=== PATIENT | male | born 1950 | race Two or more races ===

== ENCOUNTER 2024-01-26 08:02 | Emergency (ER) | payer MEDICARE, MEDICAID, SELFPAY ==
[2024-01-26 08:06] VITALS: BMI 22.1
[2024-01-26 08:19] VITALS: BP 114/71; PULSE 64; RESP 18; TEMP 36.7; O2SAT 97; BMI 22.1
--- NOTE | 2024-01-26 08:19 | EKG_ITS ---
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
--- NOTE | 2024-01-26 08:22 | PD.EDRME ---
Rapid Medical Screening Exam RME Arrival date/time: 01/26/24 08:02 Chief Complaint: General Adult/Misc Complain Vital signs: Vital Signs Temperature 98.0 F 01/26/24 08:19 Pulse Rate 64 01/26/24 08:19 Respiratory Rate 18 01/26/24 08:19 Blood Pressure 114/71 01/26/24 08:19 Pulse Oximetry (%) 97 01/26/24 08:19 Oxygen Delivery Method Room Air 01/26/24 08:19 RME Narrative: chest pain x2 days, intermittent BUE numbness/tingling x2 weeks
--- NOTE | 2024-01-26 08:24 | XR_ITS ---
Examination: PA chest single view TECHNIQUE: Upright PA chest single view Exam date and time: January 26, 2024 0847 hours INDICATIONS: Chest pain beginning 2 days ago. FINDINGS: Normal heart size Transvenous dual-chamber bipolar cardiac leads satisfactory position No pneumonia or pulmonary edema IMPRESSION: No active disease
[2024-01-26 08:44] LABS: Basophils % (Auto) 0 % (0-2.5); Eosinophils # (Auto) 0.4 Thou/mm3 (0.0-0.5); Eosinophils % (Auto) 5 % (0-10); Hematocrit 42.9 % (41.0-53.0); Hemoglobin 14.1 g/dL (13.5-16.0); Immature Granulocytes % (Auto) 0 % (0-0); Immature Granulocytes Auto 0.03 Thou/mm3 (0.00-0.00); Lymphocytes # (Auto) 2.1 Thou/mm3 (1.0-4.8); Lymphocytes % (Auto) 28 % (10-50); Mean Corpuscular HGB Conc 32.9 g/dl (31.0-37.0); Mean Corpuscular Hemoglobin 30.2 pg (25.0-35.0); Mean Corpuscular Volume 92 fL (80-100); Monocytes # (Auto) 0.6 Thou/mm3 (0.0-0.8); Monocytes % (Auto) 9 % (0-12); Neutrophils # (Auto) 4.3 Thou/mm3 (1.8-7.7); Neutrophils % (Auto) 58 % (37-80); Nucleated Red Blood Cell % 0 /100 WBC (0); Platelet Count 249 Thou/mm3 (140-440); RDW Standard Deviation 45.9 fL (35.1-43.9); Red Blood Count 4.67 Miln/mm3 (4.50-5.90); White Blood Count 7.5 Thou/mm3 (3.8-10.6)
[2024-01-26 09:02] LABS: B-Type Natriuretic Peptide < 20 pg/mL (0-100)
[2024-01-26 09:05] LABS: Alanine Aminotransferase 79 U/L (10-49); Albumin, Serum 4.9 gm/dL (3.4-4.8); Albumin/Globulin Ratio 1.6 (1.2-2.2); Alkaline Phosphatase 93 U/L (46-116); Anion Gap 6 (7-16); Aspartate Amino Transferase 40 U/L (0-34); BUN/Creatinine Ratio 26 Ratio (12-20); Bilirubin,Total 0.9 mg/dL (0.3-1.2); Blood Urea Nitrogen 34 mg/dL (9-23); Calcium 9.5 mg/dL (8.3-10.6); Calcium (Corrected) 9.5 mg/dL (8.5-10.1); Carbon Dioxide 28.1 mMol/L (20.0-31.0); Chloride 103 mMol/L (98-107); Creatinine (Component) 1.3 mg/dL (0.6-1.3); Globulin 3.1 gm/dL (2.3-3.5); Glucose 127 mg/dL (74-106); Osmolality,Calculated 283 (275-295); Potassium 4.6 mMol/L (3.4-5.1); Sodium 137 mMol/L (136-145); Troponin I < 0.002 ng/mL (0.0-0.045); eGFR 57 See Note
[2024-01-26 09:26] VITALS: BP 129/62; PULSE 60; RESP 14; TEMP 36.8; O2SAT 98
--- NOTE | 2024-01-26 09:28 | PD.EDADULT ---
ED General RME/HPI General Chief complaint: General Adult/Misc Complain Stated complaint: numbness in both arms for 15 days Arrival date/time: 01/26/24 08:02 RME / HPI RME / HPI narrative: chest pain x2 days, intermittent BUE numbness/tingling x2 weeks This section includes all my notes and documentations, including HPI, PE, and ED course.? Kaleb Vivas MD HPI: 73 year old male with history of CAD s/p PCI 02/2023, s/p pacemaker placement, hypertension, hyperlipidemia presents to the ED for evaluation of intermittent chest pain x2 days and bilateral arm numbness beginning last night. Chest pain described as aching in sensation, located most to the center without radiation, rating as mild-moderate. Reportedly had experienced similar chest pain with arm numbness 02/2023 and underwent an angiogram with stent placement. Additionally reports 2 weeks ago had a 3-day inpatient admission in [place] where a technical internship evaluated him and was started on multiple new medications that include- Apsum, Trimetazidine, Escitalopram, Amlodipine, Farxiga, Acetylsalicylic acid, Metoclopramide, Quetiapine, Amiodarone. Denies fevers, chills, cough, shortness of breath, abdominal pain, n/v/d, or urinary symptoms. No other complaints. ROS: All negative except as documented in HPI. Physical Exam: General:? Alert and oriented.?? Eyes:? Conjunctivae and lids clear.?? ENT:? No nasal congestion.?? Neck:? Supple.?Midline cervical tenderness. Chest: No tenderness. Heart: RRR. Lungs:? No respiratory distress.??Good air movement with no rhonchi or wheezing or rales. Skin:? Warm and dry.?? Neuro:? Alert and oriented X 3.??Cranial nerves II through XII grossly normal. No peripheral motor deficits. I reviewed all diagnostic test results. My interpretation of the EKG is?sinus rhythm with nonspecific ST?T changes. My interpretation of the chest x-ray is no acute findings. My review of the head CT report is?no acute findings. My review of the cervical spine CT report is: C3-C4 stenosis. Blood tests unremarkable, including negative troponin X 2. At this point, diagnoses include?noncardiac chest pain and cervical radiculopathy. Recommended conservative treatment and more outpatient cardiac workup. Based on my best medical judgment, made decision no further evaluation or treatment indicated at this time.? Patient understands and agrees to the discharge instructions customized and printed, see below. Discharge Instructions from Dr. Vivas printed for you: 1. After extensive evaluation, there is no life-threatening condition. Such as stroke or heart attack. 2. Your neck pain with numbness in the arms is due to pinched nerves coming out of your neck into your arms. Apply ice/heat if helpful. Apply [id number] lidocaine patches as needed. Wear soft neck collar as needed. 3. See a private doctor on 01/29/2024 for recheck and further care. To make sure there is no serious underlying heart condition, ask to help you get more tests for your heart that cannot be done here in the ER. Such as Holter Monitor (cardiac monitoring at home from a day to even a month), heart stress test (on treadmill or with medication), echocardiogram (imaging of your heart structures), heart catherization (checking for blockages in your heart arteries), and a referral to see a Insurance Sales Representative. For your neck pinched nerves, ask for help with MRI imaging of the neck and referral to see specialists. Some elect to have surgery but you need MRI imaging to assess the severity. 4. Seek immediate medical care with worsening or with any concerns. Kaleb Vivas MD Related Data Home Medications ?Medication ?Instructions ?Recorded ?Confirmed lisinopril 20 mg tablet 20 mg PO QDAY 06/23/22 09/26/23 metoprolol succinate 25 mg 25 mg PO QDAY 06/23/22 09/26/23 tablet,extended release 24 hr aspirin 81 mg tablet,delayed 81 mg PO QDAY 09/26/23 09/26/23 release clopidogrel 75 mg tablet (Plavix) 75 mg PO QDAY 09/26/23 09/26/23 tamsulosin 0.4 mg capsule 0.4 mg PO QHS 09/26/23 09/26/23 Allergies Allergy/AdvReac Type Severity Reaction Status Date / Time No Known Allergies Allergy Verified 01/26/24 08:05 Review of Systems Review of Systems Systems Reviewed: All systems reviewed, normal except as documented Past Medical History Past Medical History CARDIAC: Positive Hypertension Surgical History SURGICAL: Positive Pacemaker Social History SMOKING STATUS: Never smoker ED Exam Narrative Physical exam: As noted in HPI Course Quality Measures none Orders Category Date Time Status EKG (ED ONLY) *Do not use* NOW Care 01/26/24 08:[address] cervical spine wo con Stat Exams 01/26/24 10:[address] head/brain wo con Stat Exams 01/26/24 10:01 Completed CXR [XR chest 1V] Stat Exams 01/26/24 08:24 Completed EKG (ED Only) Stat Exams 01/26/24 08:19 Draft BNP [B-Type Natriuretic Peptide] Stat Lab 01/26/24 08:29 Completed CBC Stat Lab 01/26/24 08:29 Completed CMP [Comprehensive Metabolic Panel] Stat Lab 01/26/24 08:29 Completed Magnesium Stat Lab 01/26/24 10:30 Completed Troponin I Stat Lab 01/26/24 08:29 Completed Troponin I Stat Lab 01/26/24 10:30 Completed Vital Signs Vital signs: Vital Signs Temperature 98.0 F 01/26/24 08:19 Pulse Rate 64 01/26/24 08:19 Respiratory Rate 18 01/26/24 08:19 Blood Pressure 114/71 01/26/24 08:19 Pulse Oximetry (%) 97 01/26/24 08:19 Oxygen Delivery Method Room Air 01/26/24 08:19 Pulse ox is 97% on room air which is adequate. [facility] Patient data External records reviewed:: [facility] previous records (I reviewed outpatient urology visit from 09/27/2023) Clinical information provided by:: patient Social determinants that could affect healthcare access:: none Patient has the following chronic illnesses:: CAD s/p PCI 02/2023, s/p pacemaker placement, hypertension, hyperlipidemia How is presenting disease/condition affected by chronic disease/condition?: exacerbated by Evaluation data The following diagnostics were reviewed and interpreted by me:: lab results, radiology exam(s) and EKG tracing(s) Lab and/or radiology exams considered but not ordered:: None Interpretation Summary: Noncardiac chest pain and cervical radiculopathy Medications Medications considered but not ordered:: None Medication administrations:: None Consultations Consultation(s) initiated? (list below): No Diagnosis Differential Diagnosis ED Complaint MDM: Angina, chest pain, NSTEMI, noncardiac chest pain, cervical radiculopathy Most likely diagnosis given after review of the tests above:: Noncardiac chest pain and cervical radiculopathy Admission Indicated Admission indicated?: not indicated Explain why admission is indicated or not indicated:: Admission criteria not met. Admission Request Was there a request for admission?: No Disposition Plan Disposition Plan: Discharge Discharge Attestation Discharge Attestation: The patient and all family members were given an opportunity to ask questions and understood the discharge instructions. Discharge instructions specifically effects, indications for sooner follow up or return to the emergency department, and the expected course of current diagnosis. Patient condition: Stable Medical Decision Making Differential Diagnosis Differential Diagnosis: Angina, chest pain, NSTEMI, noncardiac chest pain, cervical radiculopathy Lab Data 01/26/24 08:29 01/26/24 08:29 Labs: Lab Results 01/26/24 01/26/24 Range/Units 08:29 10:30 WBC 7.5 (3.8-10.6) Thou/mm3 RBC 4.67 (4.50-5.90) Miln/mm3 Hgb 14.1 (13.5-16.0) g/dL Hct 42.9 (41.0-53.0) % MCV 92 (80-100) fL MCH 30.2 (25.0-35.0) pg MCHC 32.9 (31.0-37.0) g/dl RDW Std Deviation 45.9 H (35.1-43.9) fL Plt Count 249 (140-440) Thou/mm3 Neut % (Auto) 58 (37-80) % Lymph % (Auto) 28 (10-50) % Sutter % (Auto) 9 (0-12) % Eos % (Auto) 5 (0-10) % Baso % (Auto) 0 (0-2.5) % Neut # (Auto) 4.3 (1.8-7.7) Thou/mm3 Lymph # (Auto) 2.1 (1.0-4.8) Thou/mm3 Sutter # (Auto) 0.6 (0.0-0.8) Thou/mm3 Eos # (Auto) 0.4 (0.0-0.5) Thou/mm3 Baso # (Auto) 0.0 (0.0-0.2) Thou/mm3 Immature Gran # (Auto) 0.03 H (0.00-0.00) Thou/mm3 Absolute Nucleated RBC 0.00 (0.00-0.00) Thou/mm3 Immature Gran % 0 (0-0) % Nucleated RBC % 0 (0) /100 WBC Sodium 137 (136-145) mMol/L Potassium 4.6 (3.4-5.1) mMol/L Chloride 103 (98-107) mMol/L Carbon Dioxide 28.1 (20.0-31.0) mMol/L Anion Gap 6 L (7-16) BUN 34 H (9-23) mg/dL Creatinine 1.3 (0.6-1.3) mg/dL Estim Creat Clear Calc 46.0 L (>60) mL/min eGFR 57 L (60 - ) See Note BUN/Creatinine Ratio 26 H (12-20) Ratio Glucose 127 H (74-106) mg/dL Calculated Osmolality 283 (275-295) Calcium 9.5 (8.3-10.6) mg/dL Corrected Calcium 9.5 (8.5-10.1) mg/dL Magnesium 2.5 (1.6-2.6) mg/dL Total Bilirubin 0.9 (0.3-1.2) mg/dL AST 40 H (0-34) U/L ALT 79 H (10-49) U/L Alkaline Phosphatase 93 (46-116) U/L Troponin I < 0.002 < 0.002 (0.0-0.045) ng/mL B-Natriuretic Peptide < 20 (0-100) pg/mL Total Protein 8.0 (5.7-8.2) gm/dL Albumin 4.9 H (3.4-4.8) gm/dL Globulin 3.1 (2.3-3.5) gm/dL Albumin/Globulin Ratio 1.6 (1.2-2.2) Discharge Plan Plan Patient Disposition: HOME (Self Care) Prescriptions/Referrals Prescriptions/Med Rec: No Action lisinopril 20 mg tablet 20 mg PO QDAY metoprolol succinate 25 mg tablet extended release 24 hr 25 mg PO QDAY clopidogrel [Plavix] 75 mg tablet 75 mg PO QDAY aspirin 81 mg tablet,delayed release (DR/EC) 81 mg PO QDAY tamsulosin 0.4 mg capsule 0.4 mg PO QHS Referrals: No Primary/Family,Physician [Primary Care Provider] - In 1 week Problem List Clinical Impression: Pinched nerve in neck, Chest pain Patient/Caregiver Discharge Instructions Discharge Activity: activity as tolerated Education Materials: ED Chest Pain, Uncertain Cause, ED Radiculopathy, Cervical Additional Instructions: Discharge Instructions from Dr. Vivas printed for you: 1. After extensive evaluation, there is no life-threatening condition. Such as stroke or heart attack. 2. Your neck pain with numbness in the arms is due to pinched nerves coming out of your neck into your arms. Apply ice/heat if helpful. Apply ybok-[id number] lidocaine patches as needed. Wear soft neck collar as needed. 3. See a private doctor on 01/29/2024 for recheck and further care. To make sure there is no serious underlying heart condition, ask to help you get more tests for your heart that cannot be done here in the ER. Such as Holter Monitor (cardiac monitoring at home from a day to even a month), heart stress test (on treadmill or with medication), echocardiogram (imaging of your heart structures), heart catherization (checking for blockages in your heart arteries), and a referral to see a Insurance Sales Representative. For your neck pinched nerves, ask for help with MRI imaging of the neck and referral to see specialists. Some elect to have surgery but you need MRI imaging to assess the severity. 4. Seek immediate medical care with worsening or with any concerns. Print Language: Yoruba Stand Alone Forms: Kelly Award Info., Patient Portal Info Letter
--- NOTE | 2024-01-26 10:01 | XR_ITS ---
Examination: CT brain head without contrast. 2-D sagittal coronal reconstructions Date and time of exam:January 26, 2024 1006 hours INDICATIONS: Bilateral arm numbness onset today CTDI: vol (mGy):48.9 DLP: (mGycm):1040 Technique: Multiple CT axial sections of the brain have been obtained, 5 mm slice thickness. Contrast has not been administered. 2-D sagittal, coronal reconstructions have been obtained Low dose protocols were performed. One or more of the following dose reduction techniques were used; automated exposure control, adjustment of the mA and/or KV according to patient size, use of iterative reconstruction technique. Findings: No significant ventricular enlargement. Left frontal encephalomalacia Intra-axial or extra-axial hemorrhage density is not seen. No mass effect or midline shift Basal cisterns are not remarkable. Fourth ventricle is midline. Cranial vault intact. Impression: Negative for acute hemorrhage, mass effect or midline shift Advise clinical correlation and follow-up accordingly
--- NOTE | 2024-01-26 10:02 | XR_ITS ---
Examination: CT cervical spine without contrast 2-D sagittal reconstructions 2-D coronal reconstructions 3-D reconstructions. Exam date and time:January 26, 2024 1006 hours INDICATIONS: Neck pain radiating to the arms today CTDI:vol (mGy) 7.69 DLP: (mGycm) 182 Technique: Multiple 2 mm axial sections of the cervical spine have been obtained. The coronal and sagittal reconstructions have been obtained. 3-D reconstructions have been obtained. Low dose protocols were performed. One or more of the following dose reduction techniques were used; automated exposure control, adjustment of the mA and/or KV according to patient size, use of iterative reconstruction technique. Findings: Axial sections demonstrate intact base of the skull. C1 exhibit satisfactory relationship to the odontoid. No acute cervical vertebral body fracture seen. Alignment posterior spinous processes satisfactory. Mild disc narrowing C5-C6 C3-C4 moderate left neural foraminal stenosis Impression: No acute cervical fracture. C3-C4 moderate left neural foraminal stenosis Mild disc narrowing C5-C6 Elective MRI cervical spine without contrast follow-up would best assess for soft tissue disc protrusion producing radicular arm symptoms
[2024-01-26 11:00] VITALS: BP 149/70; PULSE 60; RESP 16; TEMP 36.6; O2SAT 98
[2024-01-26 11:16] LABS: Magnesium 2.5 mg/dL (1.6-2.6); Troponin I < 0.002 ng/mL (0.0-0.045)
== END 2024-01-26 11:31 | disposition home or self-care (01) ==
PROVIDERS: Physician Assistant; Emergency Provider Emergency Medicine
DX: G58.8 Other specified mononeuropathies (principal); R07.9 Chest pain, unspecified; R20.0 Anesthesia of skin; R94.31 Abnormal electrocardiogram [ECG] [EKG]; I10 Essential (primary) hypertension; Z95.0 Presence of cardiac pacemaker
CPT/HCPCS: 36415; 70450; 71045; 72125; 80053; 83735; 83880; 84484; 85025; 93005; 99284

== ENCOUNTER → 2024-03-26 | Outpatient (BNVA) | payer MEDICARE, MEDICAID, SELFPAY | END | disposition home or self-care (01) | PROVIDERS: PCP Physician Assistant; Referring Provider Physician Assistant; Visit Provider Urology | DX: N40.1 Benign prostatic hyperplasia with lower urinary tract symptoms (principal); N13.8 Other obstructive and reflux uropathy; Z98.890 Other specified postprocedural states; I10 Essential (primary) hypertension; I25.10 Atherosclerotic heart disease of native coronary artery without angina pectoris; Z95.0 Presence of cardiac pacemaker | CPT/HCPCS: 81003; 99212; G0463 ==

== ENCOUNTER → 2024-03-26 | Outpatient (CLI) | payer MEDICARE, MEDICAID, SELFPAY ==
[2024-03-26 13:17] LABS: Prostate Specific Antigen 0.97 ng/mL (0-4.00)
== END | disposition home or self-care (01) ==
LOC: COPL 11:13
PROVIDERS: PCP Physician Assistant; Referring Provider Urology; Visit Provider Urology
DX: N40.1 Benign prostatic hyperplasia with lower urinary tract symptoms (principal)
CPT/HCPCS: 36415; 84153

== ENCOUNTER → 2024-04-19 | Outpatient (CLI) | payer MEDICARE, MEDICAID, SELFPAY ==
[2024-04-19 08:57] LABS: Basophils % (Auto) 1 % (0-2.5); Eosinophils # (Auto) 0.2 Thou/mm3 (0.0-0.5); Eosinophils % (Auto) 4 % (0-10); Hematocrit 41.5 % (41.0-53.0); Hemoglobin 13.9 g/dL (13.5-16.0); Immature Granulocytes % (Auto) 0 % (0-0); Immature Granulocytes Auto 0.02 Thou/mm3 (0.00-0.00); Lymphocytes # (Auto) 1.5 Thou/mm3 (1.0-4.8); Lymphocytes % (Auto) 26 % (10-50); Mean Corpuscular HGB Conc 33.5 g/dl (31.0-37.0); Mean Corpuscular Volume 93 fL (80-100); Monocytes # (Auto) 0.5 Thou/mm3 (0.0-0.8); Monocytes % (Auto) 10 % (0-12); Neutrophils # (Auto) 3.4 Thou/mm3 (1.8-7.7); Neutrophils % (Auto) 60 % (37-80); Nucleated Red Blood Cell % 0 /100 WBC (0); Platelet Count 211 Thou/mm3 (140-440); RDW Standard Deviation 45.6 fL (35.1-43.9); Red Blood Count 4.48 Miln/mm3 (4.50-5.90); White Blood Count 5.7 Thou/mm3 (3.8-10.6)
[2024-04-19 09:12] LABS: Glucose Estimated Average 103 mg/dL (80-131); Hemoglobin A1C 5.2 % Hgb (4.8-6.0)
[2024-04-19 09:18] LABS: Alanine Aminotransferase 14 U/L (10-49); Albumin, Serum 4.1 gm/dL (3.4-4.8); Albumin/Globulin Ratio 1.5 (1.2-2.2); Alkaline Phosphatase 80 U/L (46-116); Anion Gap 4 (7-16); Aspartate Amino Transferase 17 U/L (0-34); BUN/Creatinine Ratio 18 Ratio (12-20); Bilirubin,Total 1.3 mg/dL (0.3-1.2); Blood Urea Nitrogen 16 mg/dL (9-23); Calcium 9.6 mg/dL (8.3-10.6); Calcium (Corrected) 9.6 mg/dL (8.5-10.1); Carbon Dioxide 29.9 mMol/L (20.0-31.0); Cardiac Risk Estimate 2.7 RATIO (4.0-6.7); Chloride 107 mMol/L (98-107); Cholesterol 133 mg/dL (132-200); Creatinine (Component) 0.9 mg/dL (0.6-1.3); Globulin 2.8 gm/dL (2.3-3.5); Glucose 96 mg/dL (74-106); HDL Cholesterol 49 mg/dL (40-60); LDL Cholesterol,Calculated 68 mg/dL (0-130); Osmolality,Calculated 282 (275-295); Potassium 4.4 mMol/L (3.4-5.1); Sodium 141 mMol/L (136-145); Total Protein 6.9 gm/dL (5.7-8.2); Triglycerides 80 mg/dL (30-150); eGFR > 60 See Note
[2024-04-19 09:19] LABS: Vitamin D 25 Hydroxy Total 31.6 ng/mL (7.3-40.2)
[2024-04-19 09:23] LABS: Ferritin 24 ng/mL (10.5-307.3); Iron 93 mcg/dL (65-175); Prostate Specific Antigen 0.73 ng/mL (0-4.00); Total Iron Binding Capacity 318 mcg/dL (250-425)
== END | disposition home or self-care (01) ==
LOC: COPL 07:41
PROVIDERS: PCP Physician Assistant; Referring Provider Physician Assistant; Visit Provider Physician Assistant
DX: E53.8 Deficiency of other specified B group vitamins (principal); E55.9 Vitamin D deficiency, unspecified; G47.00 Insomnia, unspecified; I10 Essential (primary) hypertension; I25.10 Atherosclerotic heart disease of native coronary artery without angina pectoris; N40.0 Benign prostatic hyperplasia without lower urinary tract symptoms; R73.03 Prediabetes; Z13.0 Encounter for screening for diseases of the blood and blood-forming organs and certain disorders involving the immune mechanism; Z95.0 Presence of cardiac pacemaker; Z95.5 Presence of coronary angioplasty implant and graft
CPT/HCPCS: 36415; 80053; 80061; 82306; 82728; 83036; 83540; 83550; 84153; 85025

== ENCOUNTER 2024-05-02 10:31 | Emergency (ER) | payer MEDICARE, MEDICAID, SELFPAY ==
[2024-05-02 10:48] VITALS: BP 110/73; PULSE 87; RESP 16; TEMP 37.2; O2SAT 98; BMI 22.5
[2024-05-02] MEDS: KETOROLAC INJ 30 MG/ML VIAL IM (11:34)
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
== END 2024-05-02 11:43 | disposition home or self-care (01) ==
LOC: SERX 11:53
PROVIDERS: Emergency Provider Emergency Medicine
DX: T23.001A Burn of unspecified degree of right hand, unspecified site, initial encounter (principal); T31.0 Burns involving less than 10% of body surface; X15.0XXA Contact with hot stove (kitchen), initial encounter
CPT/HCPCS: 96372; 99283; J1885

== ENCOUNTER → 2024-08-14 | Outpatient (CLI) | payer MEDICARE, SELFPAY ==
[2024-08-14 08:44] LABS: Basophils # (Auto) 0.0 Thou/mm3 (0.0-0.2); Basophils % (Auto) 0 % (0-2.5); Eosinophils # (Auto) 0.3 Thou/mm3 (0.0-0.5); Eosinophils % (Auto) 5 % (0-10); Hematocrit 44.5 % (41.0-53.0); Hemoglobin 14.7 g/dL (13.5-16.0); Immature Granulocytes Auto 0.04 Thou/mm3 (0.00-0.00); Lymphocytes # (Auto) 1.9 Thou/mm3 (1.0-4.8); Lymphocytes % (Auto) 30 % (10-50); Mean Corpuscular HGB Conc 33.0 g/dl (31.0-37.0); Mean Corpuscular Hemoglobin 30.4 pg (25.0-35.0); Mean Corpuscular Volume 92 fL (80-100); Monocytes # (Auto) 0.6 Thou/mm3 (0.0-0.8); Monocytes % (Auto) 10 % (0-12); Neutrophils # (Auto) 3.5 Thou/mm3 (1.8-7.7); Neutrophils % (Auto) 54 % (37-80); Nucleated Red Blood Cell # 0.00 Thou/mm3 (0.00-0.00); Nucleated Red Blood Cell % 0 /100 WBC (0); Platelet Count 202 Thou/mm3 (140-440); RDW Standard Deviation 46.6 fL (35.1-43.9); Red Blood Count 4.84 Miln/mm3 (4.50-5.90); White Blood Count 6.5 Thou/mm3 (3.8-10.6)
[2024-08-14 09:00] LABS: Glucose Estimated Average 111 mg/dL (80-131); Hemoglobin A1C 5.5 % Hgb (4.8-6.0)
[2024-08-14 09:01] LABS: Urea Breath Test Negative (Negative)
[2024-08-14 09:06] LABS: Alanine Aminotransferase 15 U/L (10-49); Albumin, Serum 4.3 gm/dL (3.4-4.8); Albumin/Globulin Ratio 1.5 (1.2-2.2); Alkaline Phosphatase 79 U/L (46-116); Anion Gap 6 (7-16); Aspartate Amino Transferase 20 U/L (0-34); BUN/Creatinine Ratio 18 Ratio (12-20); Bilirubin,Total 1.9 mg/dL (0.3-1.2); Blood Urea Nitrogen 16 mg/dL (9-23); Calcium 9.2 mg/dL (8.3-10.6); Calcium (Corrected) 9.2 mg/dL (8.5-10.1); Carbon Dioxide 29.2 mMol/L (20.0-31.0); Cardiac Risk Estimate 2.6 RATIO (4.0-6.7); Chloride 108 mMol/L (98-107); Cholesterol 127 mg/dL (132-200); Creatinine (Component) 0.9 mg/dL (0.6-1.3); Globulin 2.9 gm/dL (2.3-3.5); Glucose 99 mg/dL (74-106); HDL Cholesterol 48 mg/dL (40-60); LDL Cholesterol,Calculated 64 mg/dL (0-130); Osmolality,Calculated 286 (275-295); PSA Medicare Annual Scrn 0.67 ng/mL (0-4.00); Potassium 4.0 mMol/L (3.4-5.1); Sodium 143 mMol/L (136-145); Thyroid Stimulating Hormone 0.90 uIU/mL (0.55-4.78); Total Protein 7.2 gm/dL (5.7-8.2); Triglycerides 75 mg/dL (30-150); eGFR > 60 See Note
== END | disposition home or self-care (01) ==
LOC: COPL 07:47
PROVIDERS: PCP Student in an Organized Health Care Education/Training Program; Referring Provider Internal Medicine; Visit Provider Student in an Organized Health Care Education/Training Program
DX: I10 Essential (primary) hypertension (principal); E78.5 Hyperlipidemia, unspecified; Z95.0 Presence of cardiac pacemaker; N40.0 Benign prostatic hyperplasia without lower urinary tract symptoms; M54.2 Cervicalgia; R14.0 Abdominal distension (gaseous)
CPT/HCPCS: 36415; 80053; 80061; 83013; 83014; 83036; 84153; 84443; 85025; G0103

== ENCOUNTER → 2024-09-24 | Outpatient (BNVA) | payer MEDICARE, SELFPAY | END | disposition home or self-care (01) | PROVIDERS: PCP Physician Assistant; Referring Provider Physician Assistant; Visit Provider Urology | DX: N40.1 Benign prostatic hyperplasia with lower urinary tract symptoms (principal); N13.8 Other obstructive and reflux uropathy; Z98.890 Other specified postprocedural states; I10 Essential (primary) hypertension; I25.10 Atherosclerotic heart disease of native coronary artery without angina pectoris; Z95.0 Presence of cardiac pacemaker; E66.9 Obesity, unspecified; Z68.22 Body mass index [BMI] 22.0-22.9, adult | CPT/HCPCS: 81003; 99212; G0463 ==